=== PATIENT | male | born 1955 | race Hispanic/Latino ===

== ENCOUNTER → 2019-01-28 | Outpatient (CLI) | payer MEDICARE ==
[~2019-01-28] MED LIST: TRICOR48 MG PO
--- NOTE | 2019-01-29 10:52 | Diagnostic Imaging Report ---
Examination: MRI SPINE LUMBAR WITHOUT CONTRAST History: Low back pain radiating to the foot. Comparison studies: None Technique: Sagittal, coronal and axial T2 , sagittal T1 and STIR; axial spin density oblique. Findings: Number of lumbar vertebral bodies: Five. Alignment: Straightening of normal lordosis. No scoliosis. Soft tissues: No T2 hyperintense inflammatory changes. Posterior paraspinal soft tissues and muscles: No abnormality. Lower thoracic cord: Normal in signal and morphology. The tip of the conus is at T12-L1. Cauda equina: No masses. No arachnoiditis. Vertebrae: No fractures, infection or neoplasm. Degenerative changes: L1-L2: Tiny right central disc protrusion. No canal or foraminal stenosis. L2-L3: Mild diffuse volume of bilateral facet arthropathy. No foraminal or canal stenosis. L3-L4: Mild diffuse disc bulge and mild bilateral facet arthropathy. No foraminal or canal stenosis. L4-L5: Asymmetric to the right disc bulge and mild bilateral facet arthropathy result in moderate right and mild left neural foraminal narrowing. No canal stenosis. L5-S1: Small right subarticular disc protrusion superimposed on asymmetric to the right disc bulge and moderate bilateral facet arthropathy result in moderate right and mild left neural foraminal narrowing. No canal stenosis. There is impingement of the bilateral descending S1 nerve roots by the degenerative disc. IMPRESSION: Degenerative changes from L1-L2 through L5-S1 with moderate right neural foraminal narrowing at L4-L5 and L5-S1 and impingement of the bilateral descending S1 nerve roots at L5-S1. No canal stenosis. Signed by: Dr. Christie Borja M.D. on 01/29/2019 10:48 AM
== END ==
LOC: MRI 13:33
PROVIDERS: ATTEND Internal Medicine
DX: M54.41 Lumbago with sciatica, right side (principal)
CPT/HCPCS: 72148

== ENCOUNTER 2021-09-18 12:46 | Inpatient (IN) | payer MEDICARE ==
[~2021-09-18] VITALS: Ht 165.1 cm; Wt 90.7 kg
[2021-09-18] MEDS ORDERED: ASPIRIN 81 MG CHEW TAB PO ONE (13:00)
[2021-09-18] MEDS ORDERED: SODIUM CHLORIDE 0.9% 1000ML 1,000 ML IV ONE (13:00)
[2021-09-18 13:23] LABS: BASOPHILS % 0.2 % (0.0-1.0); HEMATOCRIT 48.6 % (38.2-49.6); HEMOGLOBIN 16.5 g/dL (14.0-18.0); LYMPHOCYTES # (AUTO) 1.5 (1.0-3.2); LYMPHOCYTES % 16.2 % (18.0-39.1); MEAN CORPUSCULAR HEMOGLOBIN 31.3 pg (28-32); MONOCYTES # (AUTO) 0.5 (0.2-0.8); MONOCYTES % 5.5 % (4.4-11.3); NEUTROPHILS % 77.3 % (38.7-80.0); PLATELET COUNT 127 x10e3/uL (140-360); RED BLOOD COUNT 5.28 x10e6/uL (4.3-5.7); RED CELL DISTRIBUTION WIDTH 12.8 % (11.7-14.4)
[2021-09-18] MEDS ORDERED: ONDANSETRON HCL INJ 2MG/ML 2ML 2 MG/ML VIAL IV ONE (13:30)
[2021-09-18] MEDS ORDERED: Morphine 4mg Syringe 4 MG/ML INJ IV ONE (13:30)
[2021-09-18 13:58] LABS: INR 1.1; PROTHROMBIN TIME 15.1 seconds (11.9-14.5)
[2021-09-18 13:59] LABS: PARTIAL THROMBOPLASTIN TIME 28.2 seconds (23.8-35.5)
[2021-09-18] MEDS ORDERED: XARELTO20 MG PO (14:11)
[2021-09-18] MEDS ORDERED: PANTOPRAZOLE SO40 MG PO (14:12)
[2021-09-18] MEDS ORDERED: FLOMAX0.4 MG PO (14:12)
[2021-09-18 14:20] LABS: CLARITY,URINE CLEAR (CLEAR); COLOR,URINE YELLOW (YELLOW); KETONES,URINE NEGATIVE (NEGATIVE); LEUKOCYTE ESTERASE ,URINE NEGATIVE (NEGATIVE); NITRITE,URINE NEGATIVE (NEGATIVE); PROTEIN,URINE DIPSTICK NEGATIVE (NEGATIVE); URINE UROBILINOGEN 0.2 mg/dL (0.2 - 1)
[2021-09-18 14:34] LABS: ALANINE AMINOTRANSFERASE 27 IU/L (0-55); ALBUMIN 3.9 g/dL (3.5-5.0); ALBUMIN/GLOBULIN RATIO 1.3 (0.8-2.0); ALKALINE PHOSPHATASE 50 IU/L (40-150); BLOOD UREA NITROGEN 14 mg/dL (7-26); BUN/CREATININE RATIO 14 (6-25); CALCIUM 8.8 mg/dL (8.4-10.2); CARBON DIOXIDE 18 mmol/L (22-29); CHLORIDE 110 mmol/L (98-107); CREATINE KINASE 184 IU/L (30-200); CREATININE, SERUM 0.97 mg/dL (0.72-1.25); EST GLOMERULAR FILTRATION RATE 77 ML/MIN (60-); GLUCOSE 129 mg/dL (74-118); SODIUM 139 mmol/L (136-145)
[2021-09-18 14:37] LABS: WBC,URINE (MAN) 0-5 /HPF (0-5)
[2021-09-18 14:38] LABS: BACTERIA,URINE MODERATE /HPF; EPITHELIAL CELLS,URINE FEW /LPF; MUCUS,URINE MODERATE (RARE)
[2021-09-18 14:46] LABS: AMYLASE 78 U/L (25-125)
[2021-09-18] MEDS ORDERED: HYDROMORPHONE 1MG/1ML INJ IV ONE (15:00)
[2021-09-18 15:06] LABS: LIPASE 26 U/L (8-78)
[2021-09-18] MEDS ORDERED: IOPAMIDOL 370 MG/ML 200 ML INFUS..BTL INJ ONE (15:52)
[2021-09-18] MEDS ORDERED: SODIUM CHLORIDE 0.9% 50ML 50 ML ONE (15:52)
[2021-09-18] MEDS ORDERED: HYDROMORPHONE 1MG/1ML INJ IV PRN (17:15)
[2021-09-18] MEDS: HYDROMORPHONE 1MG/1ML INJ IV PRN ×2 (17:28→23:45)
[2021-09-18] MEDS: SODIUM CHLORIDE 0.9% 1000ML 1,000 ML IV SCH (18:21)
[2021-09-18] MEDS: PIPERACILLIN/TAZOBACTAM 3.375 GM in SODIUM CHLORIDE 0.9% 50ML 50 ML IV SCH ×2 (18:22→23:18)
[2021-09-18 20:30] VITALS: BP 133/70
[2021-09-18 21:22] VITALS: BP 133/70
[2021-09-18 21:36] VITALS: BP 133/70
[2021-09-18] MEDS: ONDANSETRON HCL INJ 2MG/ML 2ML 2 MG/ML VIAL IV PRN (23:46)
[2021-09-19] VITALS (7 sets, daily range): BP systolic 93–147; BP diastolic 45–75
[2021-09-19] MEDS ORDERED: DONNATAL/LIDOCAINE/MAALOX 30 ML SUSP PO ONE (00:45)
[2021-09-19] MEDS: SODIUM CHLORIDE 0.9% 1000ML 1,000 ML IV SCH ×3 (01:45→17:15)
[2021-09-19] MEDS ORDERED: ACETAMINOPHEN 325 MG TAB PO PRN (02:00)
[2021-09-19 02:14] LABS: CREATINE KINASE MB 2.2 ng/mL (0-5.0)
[2021-09-19] MEDS: PIPERACILLIN/TAZOBACTAM 3.375 GM in SODIUM CHLORIDE 0.9% 50ML 50 ML IV SCH ×3 (05:13→17:15)
[2021-09-19 05:14] LABS: BASOPHILS % 0.1 % (0.0-1.0); HEMATOCRIT 42.8 % (38.2-49.6); HEMOGLOBIN 14.7 g/dL (14.0-18.0); LYMPHOCYTES # (AUTO) 0.9 (1.0-3.2); LYMPHOCYTES % 11.3 % (18.0-39.1); MEAN CORPUSCULAR HEMOGLOBIN 31.3 pg (28-32); MEAN CORPUSCULAR HGB CONC 34.3 g/dL (31-35); MEAN CORPUSCULAR VOLUME 91.1 fL (81-99); MONOCYTES # (AUTO) 0.1 (0.2-0.8); MONOCYTES % 1.8 % (4.4-11.3); NEUTROPHILS # (AUTO) 6.9 (2.1-6.9); NEUTROPHILS % 86.4 % (38.7-80.0); PLATELET COUNT 105 x10e3/uL (140-360); RED CELL DISTRIBUTION WIDTH 12.9 % (11.7-14.4)
[2021-09-19 05:44] LABS: ALBUMIN 3.5 g/dL (3.5-5.0); ALBUMIN/GLOBULIN RATIO 1.3 (0.8-2.0); ANION GAP 15.8 mmol/L (8-16); CALCIUM 8.2 mg/dL (8.4-10.2); CREATININE, SERUM 0.97 mg/dL (0.72-1.25); POTASSIUM 3.8 mmol/L (3.5-5.1)
[2021-09-19] MEDS: HYDROMORPHONE 1MG/1ML INJ IV PRN ×4 (05:54→20:25)
[2021-09-19] MEDS: ONDANSETRON HCL INJ 2MG/ML 2ML 2 MG/ML VIAL IV PRN ×3 (05:55→20:51)
[2021-09-19 08:02] LABS: PLATELET ESTIMATE SLIGHTLY DECREASED; PLATELET MORPHOLOGY COMMENT FEW LARGE; RBC MORPHOLOGY COMMENT NORMAL
[2021-09-19 15:10] LABS: CREATINE KINASE MB 12.9 ng/mL (0-5.0)
[2021-09-19] MEDS ORDERED: Morphine 4mg Syringe 4 MG/ML INJ IV ONE (16:00)
[2021-09-20] VITALS (7 sets, daily range): BP systolic 107–130; BP diastolic 59–74
[2021-09-20] MEDS: PIPERACILLIN/TAZOBACTAM 3.375 GM in SODIUM CHLORIDE 0.9% 50ML 50 ML IV SCH ×3 (03:09→17:07)
[2021-09-20] MEDS: HYDROMORPHONE 1MG/1ML INJ IV PRN ×5 (03:20→22:56)
[2021-09-20] MEDS: SODIUM CHLORIDE 0.9% 1000ML 1,000 ML IV SCH ×2 (03:39→15:31)
[2021-09-20 05:34] LABS: BASOPHILS % 0.2 % (0.0-1.0); EOSINOPHILS % 0.1 % (0.0-6.0); HEMATOCRIT 38.8 % (38.2-49.6); HEMOGLOBIN 13.2 g/dL (14.0-18.0); LYMPHOCYTES # (AUTO) 0.7 (1.0-3.2); LYMPHOCYTES % 7.7 % (18.0-39.1); MEAN CORPUSCULAR HEMOGLOBIN 31.9 pg (28-32); MEAN CORPUSCULAR VOLUME 93.7 fL (81-99); MONOCYTES # (AUTO) 0.8 (0.2-0.8); MONOCYTES % 9.2 % (4.4-11.3); NEUTROPHILS % 82.3 % (38.7-80.0); RED BLOOD COUNT 4.14 x10e6/uL (4.3-5.7); RED CELL DISTRIBUTION WIDTH 13.2 % (11.7-14.4)
[2021-09-20 06:02] LABS: PLATELET COUNT 76 x10e3/uL (140-360)
[2021-09-20 06:10] LABS: INR 1.72; POTASSIUM 3.5 mmol/L (3.5-5.1); PROTHROMBIN TIME 21.5 seconds (11.9-14.5)
[2021-09-20 06:11] LABS: ANION GAP 12.5 mmol/L (8-16); BILIRUBIN,DIRECT 6.2 mg/dL (0.0-0.5); CREATININE, SERUM 1.05 mg/dL (0.72-1.25); MAGNESIUM 1.6 MG/DL (1.3-2.1); PARTIAL THROMBOPLASTIN TIME 43.1 seconds (23.8-35.5)
[2021-09-20] MEDS: ONDANSETRON HCL INJ 2MG/ML 2ML 2 MG/ML VIAL IV PRN ×3 (07:16→22:56)
[2021-09-21] VITALS (7 sets, daily range): BP systolic 124–141; BP diastolic 71–90
[2021-09-21] MEDS: PIPERACILLIN/TAZOBACTAM 3.375 GM in SODIUM CHLORIDE 0.9% 50ML 50 ML IV SCH ×3 (02:21→18:38)
[2021-09-21] MEDS: HYDROMORPHONE 1MG/1ML INJ IV PRN ×3 (03:26→23:30)
[2021-09-21] MEDS: ONDANSETRON HCL INJ 2MG/ML 2ML 2 MG/ML VIAL IV PRN ×2 (03:26→09:28)
[2021-09-21 05:10] LABS: BASOPHILS % 0.2 % (0.0-1.0); EOSINOPHILS # (AUTO) 0.1 (0.0-0.4); EOSINOPHILS % 1.4 % (0.0-6.0); HEMATOCRIT 39.4 % (38.2-49.6); HEMOGLOBIN 13.6 g/dL (14.0-18.0); LYMPHOCYTES # (AUTO) 0.7 (1.0-3.2); LYMPHOCYTES % 13.4 % (18.0-39.1); MEAN CORPUSCULAR HEMOGLOBIN 31.6 pg (28-32); MEAN CORPUSCULAR HGB CONC 34.5 g/dL (31-35); MEAN CORPUSCULAR VOLUME 91.4 fL (81-99); MONOCYTES # (AUTO) 0.4 (0.2-0.8); MONOCYTES % 7.9 % (4.4-11.3); NEUTROPHILS # (AUTO) 3.9 (2.1-6.9); NEUTROPHILS % 76.7 % (38.7-80.0); PLATELET COUNT 77 x10e3/uL (140-360); RED BLOOD COUNT 4.31 x10e6/uL (4.3-5.7); RED CELL DISTRIBUTION WIDTH 12.9 % (11.7-14.4)
[2021-09-21 05:22] LABS: INR 1.19; PROTHROMBIN TIME 16.1 seconds (11.9-14.5)
[2021-09-21 05:38] LABS: ALBUMIN 2.8 g/dL (3.5-5.0); ANION GAP 12.5 mmol/L (8-16); BILIRUBIN,DIRECT 4.5 mg/dL (0.0-0.5); CALCIUM 8.4 mg/dL (8.4-10.2); CREATININE, SERUM 0.87 mg/dL (0.72-1.25); POTASSIUM 3.5 mmol/L (3.5-5.1)
[2021-09-21] MEDS ORDERED: LIDOCAINE HCL 1% LOCAL INJ 20 ML VIAL ONE (09:14)
[2021-09-21] MEDS ORDERED: IOPAMIDOL 300MG/ML 100 ML INFUS..BTL IV ONE (09:14)
[2021-09-21] MEDS: SODIUM CHLORIDE 0.9% 1000ML 1,000 ML IV SCH ×2 (09:27→23:22)
[2021-09-21] MEDS ORDERED: MIDAZOLAM HCL 2 MG/2 ML VIAL ONE (13:09)
[2021-09-21] MEDS ORDERED: FENTANYL CITRATE/PF 100MCG/2 ML INJ ONE ×2 (13:09→18:13)
[2021-09-21] MEDS ORDERED: NEOSTIGMINE 1 MG/ML 10ML VIAL ONE (13:29)
[2021-09-21] MEDS ORDERED: CEFOXITIN SOD 1 GM VIAL ONE (13:29)
[2021-09-21] MEDS ORDERED: DEXAMETHASONE SOD PHOS INJ 4 MG/ML SDV ONE (13:29)
[2021-09-21] MEDS ORDERED: LIDOCAINE HCL 2% LOCAL INJ 5 ML SDV VIAL INJ ONE (13:29)
[2021-09-21] MEDS ORDERED: PROPOFOL IV EMULSION 10 MG/ML 20 ML VIAL ONE (13:29)
[2021-09-21] MEDS ORDERED: SEVOFLURANE INHAL SOLN 250 ML PEN BTL ONE (13:29)
[2021-09-21] MEDS ORDERED: ONDANSETRON HCL INJ 2MG/ML 2ML 2 MG/ML VIAL ONE (13:29)
[2021-09-21] MEDS ORDERED: ROCURONIUM BROMIDE 10 MG/ML 5ML VIAL IV ONE (13:29)
[2021-09-21] MEDS ORDERED: POVIDONE IODINE 0.05% 0.05 % ML PO ONE (13:29)
[2021-09-21] MEDS ORDERED: GLYCOPYRROLATE INJ 0.2 MG/ML VIAL ONE (13:29)
[2021-09-21] MEDS ORDERED: IOPAMIDOL 300MG/ML 50ML INFUS..BTL IV ONE (14:40)
[2021-09-21] MEDS ORDERED: BUPIVACAINE 0.25% 30ML SDV ONE (14:40)
[2021-09-21] MEDS ORDERED: SUGAMMADEX SODIUM 200 MG/2 ML VIAL IV ONE (17:23)
[2021-09-22] VITALS (7 sets, daily range): BP systolic 117–144; BP diastolic 62–80
[2021-09-22] MEDS: PIPERACILLIN/TAZOBACTAM 3.375 GM in SODIUM CHLORIDE 0.9% 50ML 50 ML IV SCH ×3 (01:46→16:42)
[2021-09-22] MEDS: HYDROMORPHONE 1MG/1ML INJ IV PRN ×3 (02:55→20:00)
[2021-09-22 05:47] LABS: BASOPHILS % 0.2 % (0.0-1.0); HEMOGLOBIN 13.7 g/dL (14.0-18.0); LYMPHOCYTES # (AUTO) 0.4 (1.0-3.2); LYMPHOCYTES % 6.9 % (18.0-39.1); MEAN CORPUSCULAR HEMOGLOBIN 31.1 pg (28-32); MEAN CORPUSCULAR HGB CONC 35.1 g/dL (31-35); MEAN CORPUSCULAR VOLUME 88.6 fL (81-99); MONOCYTES # (AUTO) 0.2 (0.2-0.8); MONOCYTES % 3.9 % (4.4-11.3); NEUTROPHILS # (AUTO) 5.2 (2.1-6.9); NEUTROPHILS % 88.5 % (38.7-80.0); PLATELET COUNT 99 x10e3/uL (140-360); RED CELL DISTRIBUTION WIDTH 12.7 % (11.7-14.4)
[2021-09-22 05:58] LABS: INR 1.06; PROTHROMBIN TIME 14.7 seconds (11.9-14.5)
[2021-09-22 06:09] LABS: ALBUMIN 2.7 g/dL (3.5-5.0); ANION GAP 12.8 mmol/L (8-16); BILIRUBIN,DIRECT 3.2 mg/dL (0.0-0.5); CALCIUM 8.3 mg/dL (8.4-10.2); CREATININE, SERUM 0.89 mg/dL (0.72-1.25); POTASSIUM 3.8 mmol/L (3.5-5.1)
[2021-09-22] MEDS ORDERED: LACTATED RINGER'S 1,000 ML INJ ONE (10:30)
[2021-09-22] MEDS: ACETAMINOPHEN/CODEINE 300MG - 30MG TAB PO PRN ×2 (10:42→16:35)
[2021-09-23] VITALS (9 sets, daily range): BP systolic 117–136; BP diastolic 67–82
[2021-09-23] MEDS: PIPERACILLIN/TAZOBACTAM 3.375 GM in SODIUM CHLORIDE 0.9% 50ML 50 ML IV SCH ×3 (02:29→18:19)
[2021-09-23] MEDS: HYDROMORPHONE 1MG/1ML INJ IV PRN (04:59)
[2021-09-23] MEDS ORDERED: BISACODYL 5 MG TAB EC PO ONE (12:15)
[2021-09-23] MEDS: RIVAROXABAN 10 MG TABLET PO SCH ×2 (12:34→12:36)
[2021-09-23] MEDS ORDERED: RIVAROXABAN 20 MG TABLET PO SCH (12:45)
[2021-09-23 12:46] LABS: ANION GAP 12.3 mmol/L (8-16); CALCIUM 8.3 mg/dL (8.4-10.2); CREATININE, SERUM 0.86 mg/dL (0.72-1.25); POTASSIUM 3.3 mmol/L (3.5-5.1)
[2021-09-23 13:15] LABS: ALBUMIN 2.8 g/dL (3.5-5.0); BILIRUBIN,DIRECT 1.7 mg/dL (0.0-0.5)
[2021-09-23] MEDS ORDERED: POTASSIUM CHLORIDE 20 MEQ TAB CR PO ONE (15:15)
[2021-09-23] MEDS ORDERED: CITRATE OF MAGNESIA 300ML BOTTLE PO ONE (21:15)
[2021-09-24] VITALS (8 sets, daily range): BP systolic 130–149; BP diastolic 72–77
[2021-09-24] MEDS: PIPERACILLIN/TAZOBACTAM 3.375 GM in SODIUM CHLORIDE 0.9% 50ML 50 ML IV SCH ×2 (02:01→08:50)
[2021-09-24 05:56] LABS: ALBUMIN/GLOBULIN RATIO 0.9 (0.8-2.0); ANION GAP 12.8 mmol/L (8-16); CALCIUM 8.5 mg/dL (8.4-10.2); CREATININE, SERUM 0.78 mg/dL (0.72-1.25); POTASSIUM 3.8 mmol/L (3.5-5.1)
[2021-09-24] MEDS: RIVAROXABAN 10 MG TABLET PO SCH (08:50)
== END 2021-09-24 14:33 | disposition home or self-care (01) | DRG 419 ==
LOC: ER 12:56 → ERHOLD 17:36 → MED/SURG 20:04
PROVIDERS: ADMIT Internal Medicine; ATTEND Internal Medicine
PROC: 0FT44ZZ Resection of Gallbladder, Percutaneous Endoscopic Approach (ICD-10-PCS; principal; 2021-09-21 13:30)
DX: K81.0 Acute cholecystitis (principal); K21.9 Gastro-esophageal reflux disease without esophagitis; Z86.718 Personal history of other venous thrombosis and embolism; Z86.711 Personal history of pulmonary embolism; Z79.01 Long term (current) use of anticoagulants; Z90.49 Acquired absence of other specified parts of digestive tract; R79.89 Other specified abnormal findings of blood chemistry
CPT/HCPCS: 36415; 71045; 74177; 74181; 76705; 78227; 80048; 80053; 80076; 81001; 82150; 82550; 82553; 83690; 83735; 83880; 84484; 85025; 85379; 85610; 85730; 87040; 88304; 93005; 96360; 96361; 99284; A9537; J0694; J1100; J1170; J2001; J2250; J2270; J2405; J2543; J2710; J3010; J7030; J7121; Q9967; U0002